=== PATIENT | male | born 1990 | race Two or more races ===

== ENCOUNTER 2025-11-23 21:27 | Emergency (ER) | payer SELFPAY ==
[~2025-11-23] VITALS: Ht 175.3 cm; Wt 73.0 kg
[2025-11-23 21:36] VITALS: BP 144/77; PULSE 118; RESP 16; TEMP 98.4; O2SAT 99
== END 2025-11-23 22:17 | disposition left against medical advice (07) ==
LOC: ER 21:27
DX: R56.9 Unspecified convulsions (principal); Z53.21 Procedure and treatment not carried out due to patient leaving prior to being seen by health care provider
CPT/HCPCS: 99281